=== PATIENT | male | born 1965 | race Caucasian/White ===

== ENCOUNTER 2017-12-16 11:24 | Day surgery (SDC) | payer OTHER ==
[2017-12-16] MEDS ORDERED: LIDOCAINE 2% (SDV) 5 ML INJ (15:10)
[2017-12-16] MEDS ORDERED: PROPOFOL 20 ML (15:10)
[2017-12-16] MEDS ORDERED: MIDAZOLAM 1 MG/ML 2 ML INJ (15:11)
== END 2017-12-16 16:52 | disposition home or self-care (01) ==
LOC: GIL 11:24
DX: Z12.11 Encounter for screening for malignant neoplasm of colon (principal); K63.89 Other specified diseases of intestine; K64.8 Other hemorrhoids
CPT/HCPCS: 45378